=== PATIENT | female | born 1985 | race American Indian/Alaskan Native ===

== ENCOUNTER 2019-02-21 05:58 | Emergency (ER) | payer MEDICAID, OTHER ==
[2019-02-21] MEDS ORDERED: NORMODYNE IV ONE ×2 (06:32→06:35)
--- NOTE | 2019-02-21 06:36 | Emergency Department Report ---
ED General Adult HPI - General Chief complaint: Upper Respiratory Infection Stated complaint: COUGH/SOB Time Seen by Provider: 02/21/19 06:32 Source: patient Mode of arrival: Ambulatory Limitations: No Limitations - History of Present Illness Initial comments: This is a 33-year-old female with a history of an apparent hypertensive cardiomyopathy. She had complications of to include preeclampsia and chronic heart tension as per her prior discharge summary last March: This is a 32-year-old female 5 now para 4 who was admitted on 02/24/2018 with chronic hypertension with superimposed preeclampsia with severe features. Her hospital course stable until day of delivery when blood pressures were elevated and unresponsive to labetalol as well as hydralazine and her maintenance blood pressure medication. Decision was made to proceed with delivery by section due to unfavorable cervix uncontrolled blood pre ssure and she desires sterilization. Her postoperative course was unremarkable blood pressures were controlled with labetalol 600 mg 3 times a day. Patient has had return of bowel function and has no some symptoms of infection she is allowed home. Disposition: - TO HOME OR SELFCARE - Discharge Diagnoses (1) Chronic hypertension with superimposed preeclampsia Status: Acute (2) Sleep apnea Status: Chronic (3) Dyspepsia Status: Chronic (4) BMI 45.0-49.9, adult Status: Chronic (5) Swelling of lower extremity during Status: Resolved Qualifiers: Trimester: third trimester Qualified Code(s): O12.03 - Gestational edema, third trimester (6) Hazy vision Status: Resolved (7) Contraceptive education Status: Resolved (8) Sterilization Status: Acute She did have a tubal ligation at that time. Patient tells me that she is had fever without measurement of her temperature. She says some chills. She has been short of breath and complaints of white sputum. She states that her ribs are somewhat sore when she coughs. She denies any independent chest pain. She denies leg pain or swelling. Psychiatric no recent travel. She does not have a primary care provider. She has been running out of her blood pressure medicine. She presents with accelerated hypertension. -: Gradual, days(s) Associated Symptoms: denies other symptoms, cough, fever/chills, shortness of breath. denies: chest pain, headaches, nausea/vomiting, syncope - Related Data Home Medications Medication Instructions Recorded Confirmed Last Taken Labetalol 600 mg PO 4XD 02/24/18 02/24/18 Unknown Procardia Xl 30 mg PO DAILY 02/24/18 02/24/18 Unknown Previous Rx's Medication Instructions Recorded Last Taken Type Ibuprofen [Motrin 800 MG tab] 800 mg PO TID PRN #30 tablet 03/17/18 Unknown Rx Lidocain2.5%/Prilocai2.5% [Emla] 5 gm TP ONCE #1 tube 03/17/18 Unknown Rx oxyCODONE /ACETAMINOPHEN [Percocet 1 - 2 tab PO Q4HR PRN #30 tablet 03/17/18 Unknown Rx 5/325 mg] Labetalol [Labetalol 200mg TAB] 300 mg PO BID #90 tablet 03/20/18 Unknown Rx Allergies Allergy/AdvReac Type Severity Reaction Status Date / Time No Known Allergies Allergy Verified 02/23/18 23:59 ED Review of Systems ROS: Stated complaint: COUGH/SOB Other details as noted in HPI Constitutional: chills, fever Eyes: denies: eye pain, eye discharge, vision change ENT: denies: ear pain, throat pain Respiratory: cough (white female), shortness of breath. denies: wheezing Cardiovascular: denies: chest pain, palpitations Endocrine: no symptoms reported Gastrointestinal: denies: abdominal pain, nausea, diarrhea Genitourinary: other (states regular menses). denies: urgency, dysuria, discharge Musculoskeletal: denies: back pain, joint swelling, arthralgia Skin: denies: rash, lesions Neurological: denies: headache, weakness, paresthesias Psychiatric: denies: anxiety, depression Hematological/Lymphatic: denies: easy bleeding, easy bruising ED Past Medical Hx - Past Medical History Hx Hypertension: Yes (CHTN) Hx Congestive Heart Failure: No Hx Diabetes: No Hx Deep Vein Thrombosis: No Hx Renal Disease: No Hx Sickle Cell Disease: No Hx Seizures: No Hx Asthma: No Hx COPD: No Hx HIV: No - Surgical History Past Surgical History?: Yes Additional Surgical History: . Tubal ligation - Social History Smoking Status: Never Smoker - Medications Home Medications: Home Medications Medication Instructions Recorded Confirmed Last Taken Type Labetalol 600 mg PO 4XD 02/24/18 02/24/18 Unknown History Procardia Xl 30 mg PO DAILY 02/24/18 02/24/18 Unknown History Ibuprofen [Motrin 800 MG tab] 800 mg PO TID PRN #30 tablet 03/17/18 Unknown Rx Lidocain2.5%/Prilocai2.5% [Emla] 5 gm TP ONCE #1 tube 03/17/18 Unknown Rx oxyCODONE /ACETAMINOPHEN [Percocet 1 - 2 tab PO Q4HR PRN #30 tablet 03/17/18 Unknown Rx 5/325 mg] Labetalol [Labetalol 200mg TAB] 300 mg PO BID #90 tablet 03/20/18 Unknown Rx ED Physical Exam - General Limitations: No Limitations General appearance: alert, in no apparent distress, obese - Head Head exam: Present: atraumatic, normocephalic - Eye Eye exam: Present: normal appearance. Absent: scleral icterus - ENT ENT exam: Present: mucous membranes moist - Neck Neck exam: Present: normal inspection. Absent: tenderness, meningismus - Respiratory Respiratory exam: Present: normal lung sounds bilaterally (somewhat distant but I don't hear any rales or rhonchi). Absent: respiratory distress - Cardiovascular Cardiovascular Exam: Present: regular rate, normal rhythm. Absent: systolic murmur, diastolic murmur, rubs, gallop - GI/Abdominal GI/Abdominal exam: Present: soft, normal bowel sounds. Absent: distended, tenderness, guarding, rebound, rigid - Extremities Exam Extremities exam: Present: normal inspection, normal capillary refill. Absent: calf tenderness - Back Exam Back exam: Present: normal inspection - Neurological Exam Neurological exam: Present: alert, oriented X3, CN II-XII intact. Absent: motor sensory deficit - Psychiatric Psychiatric exam: Present: normal affect, normal mood - Skin Skin exam: Present: warm, dry, intact, normal color. Absent: rash ED Course Vital Signs 02/21/19 02/21/19 02/21/19 06:02 06:26 06:29 Temperature 100.5 F H Pulse Rate 131 H 120 H Respiratory 18 14 Rate Blood Pressure 236/161 Blood Pressure 225/113 [Left] O2 Sat by Pulse 96 95 Oximetry 02/21/19 02/21/19 02/21/19 06:31 06:36 06:39 Temperature Pulse Rate 117 H 117 H Respiratory 21 20 Rate Blood Pressure 213/140 213/140 Blood Pressure [Left] O2 Sat by Pulse 95 Oximetry 02/21/19 02/21/19 02/21/19 06:45 07:01 07:06 Temperature Pulse Rate 105 H 102 H 105 H Respiratory 24 28 H Rate Blood Pressure 225/133 199/112 199/113 Blood Pressure [Left] O2 Sat by Pulse 95 91 Oximetry 02/21/19 02/21/19 02/21/19 07:15 07:31 07:45 Temperature Pulse Rate 104 H 112 H 112 H Respiratory 25 H 24 17 Rate Blood Pressure 199/112 193/122 193/122 Blood Pressure [Left] O2 Sat by Pulse 96 96 97 Oximetry 02/21/19 08:00 Temperature Pulse Rate 109 H Respiratory 26 H Rate Blood Pressure 212/123 Blood Pressure [Left] O2 Sat by Pulse Oximetry - Reevaluation(s) Reevaluation #1: We will need to stabilize the patient's blood pressure before we proceed with IV fluid. Does have a fever and sepsis is a possibility. However she has malig nant hypertension. 02/21/19 06:41 Reevaluation #2: Patient's blood pressure made no progress after 20 of labetalol and 20 of hydralazine. I'm going to order Cardene drip for now. Discussed with Dr. Angel and will be in ICU hold for now. 02/21/19 08:12 ED Medical Decision Making - Lab Data Result diagrams: 02/21/19 06:42 02/21/19 06:42 Laboratory Results - last 24 hr 02/21/19 02/21/19 02/21/19 06:42 06:42 06:42 WBC 6.4 RBC 4.13 Hgb 12.1 Hct 35.7 MCV 87 MCH 29 MCHC 34 RDW 13.8 Plt Count 178 Lymph % (Auto) 8.6 L [place] % (Auto) 6.9 Eos % (Auto) 0.4 Baso % (Auto) 0.6 Lymph # 0.5 L [place] # 0.4 Eos # 0.0 Baso # 0.0 Seg Neutrophils % 83.5 H Seg Neutrophils # 5.4 PT 13.4 INR 1.05 APTT 21.7 L Lactic Acid HCG, Qual Negative 02/21/19 06:42 WBC RBC Hgb Hct MCV MCH MCHC RDW Plt Count Lymph % (Auto) [place] % (Auto) Eos % (Auto) Baso % (Auto) Lymph # [place] # Eos # Baso # Seg Neutrophils % Seg Neutrophils # PT INR APTT Lactic Acid 0.60 L HCG, Qual - EKG Data -: EKG Interpreted by Me EKG shows normal: sinus rhythm, axis, intervals - EKG Data Interpretation: LVH (consistent with LVH with secondary repolarization abnormalities) - Radiology Data Radiology results: report reviewed ("stable cardiomegaly".) Critical Care Time: Yes Critical care time in (mins) excluding proc time.: 45 Critical care attestation.: If time is entered above; I have spent that time in minutes in the direct care of this critically ill patient, excluding procedure time. ED Disposition Clinical Impression: Malignant hypertension Disposition: DC-09 OP ADMIT IP TO THIS HOSP Is pt being admited?: Yes Does the pt Need Aspirin: Yes Condition: Stable Instructions: Hypertension (ED) Referrals: STEPHEN CORREA MD [Primary Care Provider] - 3-5 Days Time of Disposition: 08:12
[2019-02-21] MEDS ORDERED: MERREM 1,000 MG in NACL 0.9% 100 ML IV ONE (06:42)
[2019-02-21] MEDS ORDERED: APRESOLINE IV ONE (07:02)
[2019-02-21 07:31] LABS: Basophils % (Auto) 0.6 % (0.0-1.8); Eosinophils % (Auto) 0.4 % (0.0-4.3); Hematocrit 35.7 % (30.3-42.9); Hemoglobin 12.1 gm/dl (10.1-14.3); Lymphocytes # (Auto) 0.5 K/mm3 (1.2-5.4); Lymphocytes % (Auto) 8.6 % (13.4-35.0); Mean Corpuscular HGB Conc 34 % (30-34); Mean Corpuscular Volume 87 fl (79-97); Monocytes # (Auto) 0.4 K/mm3 (0.0-0.8); Monocytes % (Auto) 6.9 % (0.0-7.3); Platelet Count 178 K/mm3 (140-440); Red Blood Count 4.13 M/mm3 (3.65-5.03); Red Cell Distribution Width 13.8 % (13.2-15.2)
[2019-02-21 07:40] LABS: INR 1.05 (0.87-1.13)
[2019-02-21 07:41] LABS: Partial Thromboplastin Time 21.7 Sec. (24.2-36.6)
[2019-02-21 07:57] LABS: Alanine Aminotransferase 10 units/L (7-56); Albumin 4.1 g/dL (3.9-5); BUN/Creatinine Ratio 9; Blood Urea Nitrogen 7 mg/dL (7-17); Calcium 9.2 mg/dL (8.4-10.2); Hemolysis Index 5
[2019-02-21 07:58] LABS: Bilirubin,Direct < 0.2 mg/dL (0-0.2)
[2019-02-21 08:05] LABS: Free T4 (Free Thyroxine) 0.95 ng/dL (0.76-1.46)
[2019-02-21] MEDS ORDERED: K-DUR PO ONE (08:09)
--- NOTE | 2019-02-21 08:13 | XRay Report ---
CHEST 1 VIEW INDICATION: hypertension. COMPARISON: None. FINDINGS: Support devices: None. Heart: Within normal limits. Lungs/Pleura: No acute air space or interstitial disease. Additional findings: None. IMPRESSION: No acute abnormality. Signer Name: Juan Villaseñor MD Signed: 02/21/2019 8:09 AM Workstation Name: [id number]
[2019-02-21] MEDS ORDERED: LEVAQUIN 750MG/150ML 750 MG/150 ML BAG IV ONE (08:16)
[2019-02-21] MEDS ORDERED: MORPHINE IV ONE (08:38)
[2019-02-21] MEDS ORDERED: ZOFRAN IV ONE (08:38)
[2019-02-21] MEDS ORDERED: CARDENE 50 MG in NACL 0.9% 250ML 230 ML IV SCH (09:00)
[2019-02-21 10:38] LABS: Bilirubin,Urine NEG (Negative); Blood,Urine SM (Negative); Color,Urine Yellow (Yellow); RBC,Urine < 1.0 /HPF (0.0-6.0); Urobilinogen,Urine < 2.0 mg/dL (<2.0); WBC,Urine < 1.0 /HPF (0.0-6.0)
[2019-02-21 10:46] LABS: HCG Qualitative,Urine Negative (Negative)
--- NOTE | 2019-02-21 11:39 | History and Physical Report ---
History of Present Illness Date of examination: 02/21/19 Chief complaint: Cough History of present illness: Patient is a 33 yo woman with a history of anxiety disorder, hypertension, obesity and KELLI non-adherence to wearing CPAP who presents to [facility] ED with progressive worsening, severe, intermittent BOBBY with yellowish productive cough x 4 to 5 days associated with SOB, left severe ribs pains from excessive coughing, subjective fevers, chills and sore throat which lead to worsening anxiety. So, she decided to come to ED. She admits to not taking as much of the labetalol as instructed because she ran out of insurance and was unable to get refills. She is from [place] [address] [place] and lost her Medicaid. She denies afib/aflutter but EKG read as aflutter with heart rate 105. She is being a dmitted to ICU because bp was 236/161 HR 131 on IV Cardene drip PMH: as hpi PSH: , D-n-C and tubal ligation SH: no tob/etoh/illicit drugs FH: dad had stroke in his 50s and had hypertension, mother has dyslipidemia, ROS: Constitutional: + fever ENT: + throat or neck pain Respiratory: +cough, shortness of breath Cardiovascular: + chest pain as left rib pains underneath breast Endocrine: denies unexplained weight loss or gain Gastrointestinal: denies: abdominal pain, nausea Genitourinary: denies: dysuria Rectal: denies no incontinence, no bleeding, no itching, no discharge Musculoskeletal: denies swelling, muscle weakness +myaglia Skin: denies: rash Neurological: +mild headache Hematological/Lymphatic: denies: easy bleeding or easy bruising Allergic/Immunologic: no urticaria, no allergic rhinitis, no anaphylaxis Psych: denies sadness or hopelessness, SI/HI + anxiety Medications and Allergies Allergies Allergy/AdvReac Type Severity Reaction Status Date / Time No Known Allergies Allergy Verified 02/23/18 23:59 Home Medications Medication Instructions Recorded Confirmed Last Taken Type Labetalol 600 mg PO 4XD 02/24/18 02/24/18 Unknown History Procardia Xl 30 mg PO DAILY 02/24/18 02/24/18 Unknown History Ibuprofen [Motrin 800 MG tab] 800 mg PO TID PRN #30 tablet 03/17/18 Unknown Rx Lidocain2.5%/Prilocai2.5% [Emla] 5 gm TP ONCE #1 tube 03/17/18 Unknown Rx oxyCODONE /ACETAMINOPHEN [Percocet 1 - 2 tab PO Q4HR PRN #30 tablet 03/17/18 Unknown Rx 5/325 mg] Labetalol [Labetalol 200mg TAB] 300 mg PO BID #90 tablet 03/20/18 Unknown Rx Active Meds: Active Medications Nicardipine HCl 50 mg/ Sodium (Chloride) 250 mls @ 25 mls/hr IV TITR YASIR; Protocol Last Titration: 02/21/19 09:45 Dose: 5 mg/hr, 25 mls/hr Documented by: Exam - Physical Exam Narrative exam: Gen: WDWN, NAD, bmi 42.1, Awake, Alert, Orientated x 3 HEENT: NCAT, EOMI, PERRL, OP white pasty substance on tongue Neck: supple, no adenopathy, no thyromegaly, no JVD CVS/Heart: Regular tachycardia, normal S1S2, pulses present bilaterally Chest/Lungs: CTA B, Symmetrical chest expansion, good air entry bilaterally GI/Abdomen: soft, NTND, good bowel sounds, no guarding or rebound /Bladder: no suprapubic tenderness, no CVA or paraspinal tenderness Extermity/Skin: no c/c/e, no obvious rash MSK: FROM x 4 Neuro: CN 2-12 grossly intact, no new focal deficits Psych: calm - Constitutional Vitals: Temp Pulse Resp BP Pulse Ox 100.5 F H 115 H 26 H 159/87 98 02/21/19 06:02 02/21/19 10:15 02/21/19 10:15 02/21/19 10:15 02/21/19 10:15 Results - Labs CBC & Chem 7: 02/21/19 06:42 02/21/19 06:42 Labs: Abnormal lab results 02/21/19 02/21/19 02/21/19 Range/Units 06:42 06:42 06:42 Lymph % (Auto) 8.6 L (13.4-35.0) % Lymph # 0.5 L (1.2-5.4) K/mm3 Seg Neutrophils % 83.5 H (40.0-70.0) % APTT 21.7 L (24.2-36.6) Sec. Potassium 3.1 L (3.6-5.0) mmol/L Glucose 113 H (65-100) mg/dL Lactic Acid (0.7-2.0) mmol/L NT-Pro-B Natriuret Pep 855.9 H (0-450) pg/mL 02/21/19 Range/Units 06:42 Lymph % (Auto) (13.4-35.0) % Lymph # (1.2-5.4) K/mm3 Seg Neutrophils % (40.0-70.0) % APTT (24.2-36.6) Sec. Potassium (3.6-5.0) mmol/L Glucose (65-100) mg/dL Lactic Acid 0.60 L (0.7-2.0) mmol/L NT-Pro-B Natriuret Pep (0-450) pg/mL Assessment and Plan Patient is a 33 yo woman with a history of anxiety disorder, hypertension, obesity and KELLI non-adherence to wearing CPAP who presents to [facility] ED with progressive worsening, severe, intermittent BOBBY with yellowish productive cough x 4 to 5 days associated with SOB, left severe ribs pains from excessive coughing, subjective fevers, chills and sore throat which lead to worsening anxiety. So, she decided to come to ED. She admits to not taking as much of the labetalol as instructed because she ran out of insurance and was unable to get refills. She is from [place] [address] [place] and lost her Medicaid. She denies afib/aflutter but EKG read as aflutter with heart rate 105. She is being admitted to ICU because bp was 236/161 HR 131 on IV Cardene drip * Temp is 100.5F with normal WBC, k+ 3.1, proBNP 855.9, negative UA for UTI, pCXR reported as no acute abnormality. Cough, sore throat, low grade temp, most likely viral bronchitis: treat symptomatically Malignant Hypertension with Urgency rather resistant requiring IV antihypertensive medication: iv cardene drip, start antihypertensives. Hypokalemia: replete and recheck in AM Elevated proBNP: get ECHO Whitish film on tongue but not plaques seen: treat as Dehydration and recheck oral exam in am KELLI noncompliant with cpap: counseling done, she doesn't want machine Aflutter with RVR: consulted Landscape Architecture Teacher, ?aflutter: consulted Cardiology Left rib/chest pains: get troponin, add telemetry, consult Cardiology Morbid Obesity, bmi 42.1: counseling done DVT prophylaxis: sq heparin urine HCG test still pending, so I ordered serum hcg v/q pending ordered ECHO blood culture and urine ctx pending Troponin pending
[2019-02-21] MEDS ORDERED: NORCO 5/325 PO PRN (11:43)
[2019-02-21] MEDS ORDERED: MORPHINE IV PRN (11:43)
[2019-02-21] MEDS ORDERED: NORMODYNE IV PRN (11:43)
[2019-02-21] MEDS ORDERED: ZOFRAN IV PRN (11:43)
[2019-02-21] MEDS ORDERED: APRESOLINE IV PRN (11:43)
[2019-02-21] MEDS ORDERED: TYLENOL PO PRN (11:43)
[2019-02-21] MEDS ORDERED: PERCOCET 5/325 ONE (11:58)
[2019-02-21] MEDS ORDERED: ZESTRIL PO SCH (12:00)
[2019-02-21] MEDS ORDERED: LOPRESSOR PO SCH (12:00)
--- NOTE | 2019-02-21 13:22 | Nuclear Medicine Report ---
NUCLEAR MEDICINE VENTILATION/PERFUSION LUNG SCAN INDICATION / CLINICAL INFORMATION: cough, chest pain. TECHNIQUE: 15 mCi of Xe-133 were given by inhalation. 5 mCi of Tc-99m MAA were given by IV. COMPARISON: Chest radiograph dated 02/21/2019. FINDINGS: VENTILATION: No significant ventilation defects. PERFUSION: There is a single segmental perfusion defect in the lateral basilar right lower lobe. ADDITIONAL FINDINGS: None. IMPRESSION: 1. Intermediate probability for pulmonary embolism. Signer Name: Ramon Medrano MD Signed: 02/21/2019 1:18 PM Workstation Name: [id number]
[2019-02-21 16:33] VITALS: BP 173/106
--- NOTE | 2019-02-21 17:04 | Discharge Summary ---
Providers - Providers Date of discharge: 02/21/19 02/21/19 11:40 Consult to Physician [CONS] Routine Comment: Consulting Provider: JAREN BRANDT Physician Instructions: Reason For Exam: severe hypertension, ?aflutter, chest pains [facility] Condition: Poor Hospital course: Patient is a 33 yo woman with a history of anxiety disorder, hypertension, obesity and KELLI non-adherence to wearing CPAP who presents to [facility] ED with progressive worsening, severe, intermittent BOBBY with yellowish productive cough x 4 to 5 days associated with SOB, left severe ribs pains from excessive coughing, subjective fevers, chills and sore throat which lead to worsening anxiety. So, she decided to come to ED. She admits to not taking as much of the labetalol as instructed because she ran out of insurance and was unable to get refills. She is from [place] [address] [place] and lost her Medicaid. She denies afib/aflutter but EKG read as aflutter with heart rate 105. She is being admitted to ICU because bp was 236/161 HR 131 on IV Cardene drip Temp is 100.5F with normal WBC, k+ 3.1, proBNP 855.9, negative UA for UTI, pCXR reported as no acute abnormality. Cough, sore throat, low grade temp, most likely viral bronchitis: treat symptomatically Malignant Hypertension with Urgency rather resistant requiring IV antihypertensive medication: iv cardene drip, start antihypertensives. Hypokalemia: replete and recheck in AM Elevated proBNP: get ECHO Whitish film on tongue but not plaques seen: treat as Dehydration and recheck oral exam in am KELLI noncompliant with cpap: counseling done, she doesn't want machine Aflutter with RVR: consulted Drafting Technician, ?aflutter: consulted Cardiology Left rib/chest pains: get troponin, add telemetry, consult Cardiology Morbid Obesity, bmi 42.1: counseling done DVT prophylaxis: sq heparin urine HCG test still pending, so I ordered serum hcg v/q pending ordered ECHO blood culture and urine ctx pending Troponin pending patient threatening to leave AMA because of family oblig. I strongly disagree and told her she may with such uncontrolled bp but she still wants to leave AMA. she has 4 kid, 9, 7, 5, and 11 month old and her ran out of formula. she is not breast feeding. i will give norvasc because if is free at [facility] and refill her home labetalol. she was on this regimen before and it was helpful Disposition: DC-07 LEFT AGAINST MED ADVICE Time spent for discharge: 34 minutes Core Measure Documentation - Palliative Care Palliative Care/ Comfort Measures: Not Applicable - Core Measures Any of the following diagnoses?: none - VTE Discharge Requirements Deep Vein Thrombosis/Pulmonary Embolism Present on Admission: No Has pt received <5 days of overlap therapy or INR<2.0: No Anticoagulant overlap therapy prescribed at discharge: No Contraindication No Overlap Therapy order at DC: Not Indicated Exam - Physical Exam Narrative exam: Gen: WDWN, NAD, bmi 42.1, Awake, Alert, Orientated x 3 HEENT: NCAT, EOMI, PERRL, OP white pasty substance on tongue Neck: supple, no adenopathy, no thyromegaly, no JVD CVS/Heart: Regular tachycardia, normal S1S2, pulses present bilaterally Chest/Lungs: CTA B, Symmetrical chest expansion, good air entry bilaterally GI/Abdomen: soft, NTND, good bowel sounds, no guarding or rebound /Bladder: no suprapubic tenderness, no CVA or paraspinal tenderness Extermity/Skin: no c/c/e, no obvious rash MSK: FROM x 4 Neuro: CN 2-12 grossly intact, no new focal deficits Psych: calm - Constitutional Vitals: Temp Pulse Resp BP Pulse Ox 100 F H 99 H 25 H 173/106 97 02/21/19 10:00 02/21/19 16:30 02/21/19 16:30 02/21/19 16:30 02/21/19 16:30 Plan Follow up with: STEPHEN CORREA MD [Primary Care Provider] - 3-5 Days Prescriptions: Labetalol 600 mg PO 4XD 30 Days amLODIPine [Norvasc] 10 mg PO DAILY #30 tab
[2019-02-22] MEDS ORDERED: PROTONIX PO SCH (10:00)
== END 2019-02-21 17:17 | disposition left against medical advice (07) ==
LOC: ED 05:58
DX: I10 Essential (primary) hypertension (principal); R05 Cough; R06.02 Shortness of breath; R07.81 Pleurodynia; F41.9 Anxiety disorder, unspecified; G47.33 Obstructive sleep apnea (adult) (pediatric); E66.01 Morbid (severe) obesity due to excess calories; Z68.41 Body mass index [BMI] 40.0-44.9, adult; Z98.51 Tubal ligation status; Z79.1 Long term (current) use of non-steroidal anti-inflammatories (NSAID); Z79.899 Other long term (current) drug therapy; Z99.89 Dependence on other enabling machines and devices
CPT/HCPCS: 36415; 71045; 78582; 80048; 80076; 81001; 81025; 82140; 83735; 83880; 84439; 84443; 84484; 84703; 85025; 85610; 85730; 87040; 87086; 93005; 93010; 96365; 96366; 96367; 96368; 96375; 99291; A9540; A9558; J0360; J1956; J2185; J2270; J2405; J7050